=== PATIENT | male | born 1950 | race Two or more races ===

== ENCOUNTER 2017-11-07 19:34 | Emergency (ER) | payer BC ==
[~2017-11-07] VITALS: Ht 172.7 cm; Wt 72.6 kg
--- NOTE | 2017-11-07 19:35 | NUR ---
PT BIB [facility] WITH A C/O SYNCOPAL EPISODE PSYCH ARNP. PT INJURED RT BOTTOM LIP. PT IS AA&O X4. PT IS ON THE MONITOR AND CONTINUOUS PULSE OX. PT IS ON RA, RESP EVEN AND UNLABORED. PT HAS ICE PACK TO RT BOTTOM LIP. PT HAS 18G IV LAC PSYCH ARNP.
[2017-11-07] MEDS ORDERED: ONDANSETRON HCL/PF 4 MG/2 ML VIAL ONE ×3 (19:42→21:27)
[2017-11-07] MEDS: IV NS 0.9% 1,000 ML BAG IV ONE (19:49)
[2017-11-07] MEDS: ONDANSETRON HCL/PF 4 MG/2 ML VIAL IVP ONE (19:50)
[2017-11-07 19:53] LABS: BASOPHILS # (AUTO) 0.1 /CMM (0.0-0.2); BASOPHILS % (AUTO) 0.8 % (0.0-2.0); EOSINOPHILS # (AUTO) 0.1 /CMM (0.0-0.7); EOSINOPHILS % (AUTO) 1.2 % (0.0-6.0); HEMATOCRIT 46 % (39-51); HEMOGLOBIN 15.6 g/dL (13.5-17.5); LYMPHOCYTES # (AUTO) 2.9 /CMM (0.8-4.8); LYMPHOCYTES % (AUTO) 32.4 % (20.0-44.0); MEAN CORPUSCULAR HEMOGLOBIN 30 PG (26.0-33.0); MEAN CORPUSCULAR HGB CONC 34 g/dl (31.0-36.0); MEAN CORPUSCULAR VOLUME 89 fL (80-96); MONOCYTES # (AUTO) 0.5 /CMM (0.1-1.30); NEUTROPHILS # (AUTO) 5.3 /CMM (1.8-8.9); NEUTROPHILS % (AUTO) 59.6 % (43.0-81.0); PLATELET COUNT (AUTO) 309 /CMM (150-450); RDW COEFFICIENT OF VARIATION 12.4 (11.5-15.0); RED BLOOD CELL COUNT(AUTO) 5.15 MIL/uL (4.5-6.0); WHITE BLOOD COUNT (AUTO) 8.9 K/uL (4.3-11.0)
[2017-11-07 20:04] LABS: CALCIUM, SERUM 8.7 mg/dL (8.5-10.1); CARBON DIOXIDE 30 mmol/L (21-32); CHLORIDE 103 mmol/L (98-107); CREATININE 1.3 mg/dL (0.6-1.3); GLUCOSE 115 mg/dL (74-106); POTASSIUM 3.5 mmol/L (3.5-5.1); SODIUM SERUM 140 mmol/L (136-145); UREA NITROGEN, BLOOD 14 mg/dL (7-18)
--- NOTE | 2017-11-07 20:08 | NUR ---
dr. villanueva is at the bedside.
[2017-11-07 20:11] LABS: TROPONIN I < 0.017 ng/mL (0.00-0.056)
[2017-11-07 20:16] LABS: ALANINE AMINOTRANSFERASE 34 U/L (12-78); ALBUMIN 3.7 g/dL (3.4-5.0); ALKALINE PHOSPHATASE 69 U/L (46-116); ASPARTATE AMINOTRANSFERASE 26 U/L (15-37); BILIRUBIN,DIRECT 0.1 mg/dL (0.0-0.2); BILIRUBIN,TOTAL 0.4 mg/dL (0.2-1.0); TOTAL PROTEIN, SERUM 7.5 g/dL (6.4-8.2)
--- NOTE | 2017-11-07 20:18 | NUR ---
PT IS GOING TO CT.
--- NOTE | 2017-11-07 20:35 | NUR ---
PT RETURNED FROM CT.
--- NOTE | 2017-11-07 20:44 | NUR ---
DR. GARAY IS GOING TO SPEAK TO THE PT AND HIS FAMILY.
--- NOTE | 2017-11-07 20:45 | NUR ---
CALLED , , LEFT MESSAGE ON VOICEMAIL
[2017-11-07] MEDS ORDERED: ACETAMINOPHEN ES 500 MG TABLET ONE (20:47)
[2017-11-07] MEDS: ACETAMINOPHEN ES 500 MG TABLET PO ONE (20:49)
--- NOTE | 2017-11-07 20:49 | NUR ---
PT REC'D 1GM TYLENOL PO. PT TOLERATED PO WELL. SWALLOW EVAL DONE. DR. GARAY NOTIFIED.
--- NOTE | 2017-11-07 20:56 | NUR ---
CALLED [facility], , SPOKE WITH [facility], FAXED FACESHEET AND CT RESULT TO [phone].
--- NOTE | 2017-11-07 21:01 | NUR ---
[facility] CLINICIAN IS AT THE BEDSIDE FOR BLOOD DRAW. PT VOMITTED AND IS STILL C/O [place]. DR GARAY IS AWARE.
[2017-11-07] MEDS ORDERED: LEVETIRACETAM (500MG) 500 MG/5 ML VIAL IV ONE (21:06)
[2017-11-07] MEDS: LEVETIRACETAM (500MG) 1,000 MG in IV NS 0.9% 100 ML IV SCH (21:11)
[2017-11-07] MEDS: ONDANSETRON HCL/PF - ER 4 MG/2 ML VIAL IV ONE (21:11)
[2017-11-07] MEDS ORDERED: IOHEXOL-350 100 ML VIAL IV ONE (21:13)
[2017-11-07] MEDS ORDERED: IV NS 0.9% 250 ML IV ONE (21:13)
[2017-11-07] MEDS ORDERED: CT SWABBABLE VALVE TRANS SET 1 EA INFUS.SET MC ONE (21:13)
[2017-11-07 21:22] VITALS: BP 123/67
[2017-11-07 21:24] LABS: INR 0.96 (0.87-1.13)
[2017-11-07] MEDS ORDERED: MORPHINE SULFATE INJ 4 MG/ML DISP.SYRIN ONE (21:28)
--- NOTE | 2017-11-07 21:31 | NUR ---
CCT ARRIVED FROM [facility]. REPORT GIVEN TO SAAD LOPES FOR [facility]. ACCEPTING MD IS DR. SANTOS. PT IS LEAVING VIA AMBULANCE.
--- NOTE | 2017-11-07 21:33 | NUR ---
VERBAL ORDER PRIOR TO TRANSPORT. PT REC'D MORPHINE 4MG IVP AND 4MG ZOFRAN IVP. MEDICATION GIVEN.
== END 2017-11-07 21:45 ==
LOC: ER 19:39
DX: S06.6X9A Traumatic subarachnoid hemorrhage with loss of consciousness of unspecified duration, initial encounter (principal); R51 Headache; Z88.6 Allergy status to analgesic agent; X58.XXXA Exposure to other specified factors, initial encounter; Y93.89 Activity, other specified; Y92.89 Other specified places as the place of occurrence of the external cause; Y99.8 Other external cause status
CPT/HCPCS: 36415; 70450; 71010; 80048; 80076; 84484; 85025; 85730; 86850; 93005; 96361; 96365; 96375; 96376; 99291; A4606; J1953 ×2; J2405 ×4; J7030 ×3; J7050; Q9967; Z7610; J2270